=== PATIENT | male | born 1950 | race African-American/Black ===

== ENCOUNTER 2022-11-28 17:04 | Inpatient (IN) | payer MEDICARE, BC ==
[~2022-11-28] VITALS: Ht 165.1 cm; Wt 88.5 kg
[2022-11-28 18:41] VITALS: BP 144/87; PULSE 93; RESP 20; TEMP 98; O2SAT 90
[2022-11-28] MEDS ORDERED: MORPHINE SULFATE INJ 2 MG/ml SYRG IV PRN (21:00)
[2022-11-28] MEDS ORDERED: NITROGLYCERIN 0.4 MG SL TAB SL PRN (21:00)
[2022-11-28] MEDS ORDERED: ALBUTEROL SULF HFA 90MCG INH 200DOSE IN PRN ×2 (21:15)
[2022-11-28] MEDS ORDERED: ASPirin 81 mg TAB PO ONE (21:15)
[2022-11-28 22:00] VITALS: BP 144/87; PULSE 93; RESP 20; TEMP 98.7; O2SAT 90
[2022-11-28 23:01] LABS: Basophils # (auto) 0 10 ^3/uL (0-0.2); Basophils % (auto) 0.3 % (0.0-2.0); Eosinophils # (auto) 0 10 ^3/uL (0-0.8); Eosinophils % (auto) 0.6 % (0.0-7.0); Hematocrit 36.7 % (41.0-53.0); Hemoglobin 12.6 g/dL (13.5-17.5); Lymphocytes # (auto) 1.3 10 ^3/uL (0.4-5.4); Lymphocytes % (auto) 17.2 % (10.0-50.0); Mean Corpuscular Hemoglobin 28.9 pg (28.0-32.0); Mean Corpuscular Hgb Conc. 34.3 g/dL (32.0-36.0); Mean Corpuscular Volume 84.5 fL (80.0-100.0); Monocytes # (auto) 0.4 10 ^3/uL (0-1.3); Monocytes % (auto) 5.7 % (0.0-12.0); Neutrophils # (auto) 5.7 10 ^3/uL (1.6-8.6); Neutrophils % (auto) 76.2 % (37.0-80.0); Nucleated Red Blood Cells % 0.3 %; Red Blood Cells 4.34 10^6/uL (4.5-5.90); Red Cell Distribution Width 14.1 % (11.8-14.3); White Blood Cell 7.4 10^3/uL (4.4-10.8)
[2022-11-28] MEDS: ZINC SULFATE 220mg CAP or TAB PO SCH (23:05)
[2022-11-28] MEDS: ASCORBIC ACID 1,000 MG TAB PO SCH (23:05)
[2022-11-28] MEDS: CHOLECALCIFEROL (VITD3) 2,000 UNIT CAP/TAB PO SCH (23:06)
[2022-11-28 23:16] LABS: Alanine Aminotransferase 116 U/L (7-40); Albumin 4.1 g/dL (3.2-4.8); Alkaline Phosphatase 77 U/L (46-116); Anion Gap 7 (5-15); Aspartate Aminotransferase 71 U/L (13-40); BUN/Creatinine Ratio 9.1 (10.0-20.0); Blood Urea Nitrogen 11 mg/dL (9-23); Calcium 9.3 mg/dL (8.7-10.4); Carbon Dioxide 25 mmol/L (20-30); Chloride 106 mmol/L (98-107); Glucose 173 mg/dL (74-106); Magnesium 1.9 mg/dL (1.6-2.6); Potassium 3.6 mmol/L (3.5-5.1); Sodium 138 mmol/L (136-145)
[2022-11-28 23:17] LABS: Bilirubin, Total 0.4 mg/dL (0.2-1.0); Phosphorus 2.5 mg/dL (2.4-5.1); Total Protein 7.1 g/dL (5.7-8.2)
[2022-11-29] VITALS (12 sets, daily range): BP systolic 114–142; BP diastolic 62–84; PULSE 78–105; RESP 18–20; TEMP 97.9–98.6; O2SAT 91–100
[2022-11-29] MEDS ORDERED: DEXTROSE (50%) 50ML SYRG IV PRN (00:15)
[2022-11-29] MEDS ORDERED: HYDROcodone-ACET 5/325MG TAB PO PRN (00:30)
[2022-11-29] MEDS: ACCU-CHEK COMFORT CURVE STRIP VI SCH ×4 (06:41→22:00)
[2022-11-29 06:42] LABS: Basophils # (auto) 0 10 ^3/uL (0-0.2); Basophils % (auto) 0.3 % (0.0-2.0); Eosinophils # (auto) 0.1 10 ^3/uL (0-0.8); Eosinophils % (auto) 0.8 % (0.0-7.0); Hemoglobin 13.1 g/dL (13.5-17.5); Lymphocytes # (auto) 1.6 10 ^3/uL (0.4-5.4); Lymphocytes % (auto) 19.6 % (10.0-50.0); Mean Corpuscular Hemoglobin 29.1 pg (28.0-32.0); Mean Corpuscular Hgb Conc. 34.5 g/dL (32.0-36.0); Mean Corpuscular Volume 84.2 fL (80.0-100.0); Monocytes # (auto) 0.6 10 ^3/uL (0-1.3); Monocytes % (auto) 7.3 % (0.0-12.0); Neutrophils # (auto) 5.8 10 ^3/uL (1.6-8.6); Nucleated Red Blood Cells % 0.3 %; Red Blood Cells 4.51 10^6/uL (4.5-5.90); Red Cell Distribution Width 14.5 % (11.8-14.3)
[2022-11-29] MEDS: InsuLIN REG 1unit/0.01ml Soln (100units/ml) SC SCH ×4 (06:44→21:37)
[2022-11-29 06:55] LABS: Alanine Aminotransferase 112 U/L (7-40); Albumin 4.2 g/dL (3.2-4.8); Alkaline Phosphatase 82 U/L (46-116); Anion Gap 7 (5-15); BUN/Creatinine Ratio 7.3 (10.0-20.0); Blood Urea Nitrogen 8 mg/dL (9-23); Calcium 9.5 mg/dL (8.7-10.4); Carbon Dioxide 25 mmol/L (20-30); Chloride 105 mmol/L (98-107); Glucose 136 mg/dL (74-106); Potassium 3.7 mmol/L (3.5-5.1); Sodium 137 mmol/L (136-145)
[2022-11-29 06:56] LABS: Aspartate Aminotransferase 60 U/L (13-40); Bilirubin, Total 0.5 mg/dL (0.2-1.0); Total Protein 7.4 g/dL (5.7-8.2)
[2022-11-29] MEDS: BUDESONIDE (INHALATION) 0.5 MG/2 ML NEB NEB SCH ×2 (09:45→22:25)
[2022-11-29] MEDS ORDERED: BUDESONIDE (INHALATION) 180 MCG IH IN SCH (10:00)
[2022-11-29] MEDS: DexAMETHasone SOD PHOS 10MG/1ML VIAL INJ IV SCH (10:45)
[2022-11-29] MEDS: ASPirin 81 mg TAB PO SCH (10:46)
[2022-11-29] MEDS: MULTIPLE VITAMIN TAB PO SCH (10:46)
[2022-11-29] MEDS: ZINC SULFATE 220mg CAP or TAB PO SCH (10:46)
[2022-11-29] MEDS: cefTRIAXone 1GM/50ML D5W 50 ML IV SCH (10:47)
[2022-11-29] MEDS: CHOLECALCIFEROL (VITD3) 2,000 UNIT CAP/TAB PO SCH (10:47)
[2022-11-29] MEDS: ASCORBIC ACID 1,000 MG TAB PO SCH (10:47)
[2022-11-29 14:29] LABS: COVID19 ANTIGEN SOFIA FIA NEGATIVE (NEGATIVE)
[2022-11-29] MEDS ORDERED: amLODIPine BESYLATE 5 MG TAB PO ONE (17:30)
[2022-11-30] VITALS (12 sets, daily range): BP systolic 115–135; BP diastolic 71–84; PULSE 66–96; RESP 16–20; TEMP 98–98.8; O2SAT 91–100
[2022-11-30 05:59] LABS: Basophils # (auto) 0 10 ^3/uL (0-0.2); Basophils % (auto) 0.3 % (0.0-2.0); Eosinophils # (auto) 0 10 ^3/uL (0-0.8); Eosinophils % (auto) 0.5 % (0.0-7.0); Hemoglobin 13.4 g/dL (13.5-17.5); Lymphocytes # (auto) 1.7 10 ^3/uL (0.4-5.4); Monocytes # (auto) 0.8 10 ^3/uL (0-1.3); Monocytes % (auto) 8.5 % (0.0-12.0)
[2022-11-30 06:02] LABS: Hematocrit 38.9 % (41.0-53.0); Lymphocytes % (auto) 17.3 % (10.0-50.0); Mean Corpuscular Hgb Conc. 34.6 g/dL (32.0-36.0); Mean Corpuscular Volume 83.9 fL (80.0-100.0); Neutrophils # (auto) 7.1 10 ^3/uL (1.6-8.6); Neutrophils % (auto) 73.4 % (37.0-80.0); Nucleated Red Blood Cells % 0.2 %; Red Blood Cells 4.63 10^6/uL (4.5-5.90); Red Cell Distribution Width 14.2 % (11.8-14.3); White Blood Cell 9.7 10^3/uL (4.4-10.8)
[2022-11-30] MEDS: InsuLIN REG 1unit/0.01ml Soln (100units/ml) SC SCH ×4 (06:03→21:16)
[2022-11-30 06:12] LABS: Alanine Aminotransferase 129 U/L (7-40); Albumin 4.2 g/dL (3.2-4.8); Alkaline Phosphatase 82 U/L (46-116); Anion Gap 7 (5-15); Aspartate Aminotransferase 69 U/L (13-40); BUN/Creatinine Ratio 13.1 (10.0-20.0); Bilirubin, Total 0.4 mg/dL (0.2-1.0); Blood Urea Nitrogen 14 mg/dL (9-23); Calcium 10.1 mg/dL (8.7-10.4); Carbon Dioxide 26 mmol/L (20-30); Chloride 105 mmol/L (98-107); Glucose 150 mg/dL (74-106); Potassium 4.6 mmol/L (3.5-5.1); Sodium 138 mmol/L (136-145); Total Protein 7.5 g/dL (5.7-8.2)
[2022-11-30] MEDS: ACCU-CHEK COMFORT CURVE STRIP VI SCH ×4 (06:22→22:00)
[2022-11-30] MEDS: BUDESONIDE (INHALATION) 0.5 MG/2 ML NEB NEB SCH ×2 (09:30→23:19)
[2022-11-30] MEDS: cefTRIAXone 1GM/50ML D5W 50 ML IV SCH (10:37)
[2022-11-30] MEDS: ASPirin 81 mg TAB PO SCH (10:37)
[2022-11-30] MEDS: DexAMETHasone SOD PHOS 10MG/1ML VIAL INJ IV SCH (10:37)
[2022-11-30] MEDS: MULTIPLE VITAMIN TAB PO SCH (10:38)
[2022-11-30] MEDS: ZINC SULFATE 220mg CAP or TAB PO SCH (10:38)
[2022-11-30] MEDS: amLODIPine BESYLATE 5 MG TAB PO SCH (10:39)
[2022-11-30] MEDS: ASCORBIC ACID 1,000 MG TAB PO SCH (10:40)
[2022-11-30] MEDS: CHOLECALCIFEROL (VITD3) 2,000 UNIT CAP/TAB PO SCH (10:40)
[2022-11-30 12:43] LABS: Urine Bacteria NONE SEEN /hpf (None Seen); Urine Blood Negative /uL (Negative); Urine Clarity Clear (Clear); Urine Color Colorless (Yellow); Urine Protein, UAD Negative (Negative); Urine Specific Gravity 1.009 (1.001-1.035); Urine Urobilinogen Normal (Negative); Urine WBC <1 /hpf (0 - 3)
[2022-11-30] MEDS ORDERED: ATOR20TA50 PO (17:57)
[2022-11-30] MEDS ORDERED: FENO145T27 PO (17:58)
[2022-11-30] MEDS ORDERED: PANT40TA2 PO (18:02)
[2022-11-30] MEDS ORDERED: ALLO100T PO (18:03)
[2022-11-30] MEDS ORDERED: VALS40TA2 PO (18:04)
[2022-12-01] VITALS (8 sets, daily range): BP systolic 129–133; BP diastolic 74–81; PULSE 68–76; RESP 16–18; TEMP 36.7; O2SAT 95–98
[2022-12-01 04:30] LABS: Rapid Influenza A Negative (Negative); Rapid Influenza B Negative (Negative)
[2022-12-01] MEDS: InsuLIN REG 1unit/0.01ml Soln (100units/ml) SC SCH ×2 (05:40→12:50)
[2022-12-01] MEDS: ACCU-CHEK COMFORT CURVE STRIP VI SCH ×2 (06:21→12:49)
[2022-12-01] MEDS: cefTRIAXone 1GM/50ML D5W 50 ML IV SCH (10:08)
[2022-12-01] MEDS: DexAMETHasone SOD PHOS 10MG/1ML VIAL INJ IV SCH (10:08)
[2022-12-01] MEDS: ASPirin 81 mg TAB PO SCH (10:09)
[2022-12-01] MEDS: ASCORBIC ACID 1,000 MG TAB PO SCH (10:09)
[2022-12-01] MEDS: ZINC SULFATE 220mg CAP or TAB PO SCH (10:09)
[2022-12-01] MEDS: MULTIPLE VITAMIN TAB PO SCH (10:09)
[2022-12-01] MEDS: CHOLECALCIFEROL (VITD3) 2,000 UNIT CAP/TAB PO SCH (10:09)
[2022-12-01] MEDS: amLODIPine BESYLATE 5 MG TAB PO SCH (10:10)
[2022-12-01] MEDS: BUDESONIDE (INHALATION) 0.5 MG/2 ML NEB NEB SCH (10:44)
[2022-12-01] MEDS ORDERED: ASCO500T11 PO ×3 (14:14→14:26)
[2022-12-01] MEDS ORDERED: CHOL1CAP47 PO ×3 (14:14→14:26)
[2022-12-01] MEDS ORDERED: DEXA6TAB PO ×3 (14:14→14:26)
[2022-12-01] MEDS ORDERED: ZINC220C10 PO ×3 (14:14→14:26)
== END 2022-12-01 16:30 | disposition home or self-care (01) | DRG 177 ==
LOC: TELE-CENTR 17:04 → UNDOADMIN 17:04 → TELE-CENTR 20:03 → TELE-EAST 20:03 → TELE-CENTR 21:12 → TELE-EAST 21:12
PROVIDERS: ADMIT Internal Medicine Geriatric Medicine; ATTEND Internal Medicine Geriatric Medicine
DX: U07.1 COVID-19 (principal); J96.01 Acute respiratory failure with hypoxia; N17.0 Acute kidney failure with tubular necrosis; I10 Essential (primary) hypertension; E66.9 Obesity, unspecified; E11.65 Type 2 diabetes mellitus with hyperglycemia; Z20.822 Contact with and (suspected) exposure to COVID-19; E78.5 Hyperlipidemia, unspecified; E78.00 Pure hypercholesterolemia, unspecified; Z79.899 Other long term (current) drug therapy; Z79.84 Long term (current) use of oral hypoglycemic drugs; Z68.32 Body mass index [BMI] 32.0-32.9, adult
CPT/HCPCS: 36415; 71045; 80053; 81001; 82607; 82728; 82962; 83036; 83735; 84100; 85025; 85379; 87081; 87426; 87804; 94640; G0378; J0696; J1100; J1815